=== PATIENT | female | born 1985 | race Caucasian/White ===

== ENCOUNTER → 2017-01-25 | Outpatient (CLI) | payer BC ==
[~2017-01-25] MED LIST: HYDR-3812 PO; IBUP-1773 PO
--- OUTSIDE RECORDS SUMMARY | 2017-01-25 09:44 | XMS REPORT | Continuity of Care Document ---
Author Author [facility] Organization [facility] Address Unknown Phone Unavailable Care Team Providers Care Information Developer Name Role Phone MIRACLE VENEGAS MD PCP Insurance Providers Payer Name Policy Number Subscriber Name Relationship Unknown Praveena Cuellar Self / Same As Patient Advance Directives Directive Response Recorded Date/Time Advance Directives No 06/04/16 8:30am Resuscitation Status Full Code 06/04/16 8:30am Problems No problem information available. Medications Current Home Medications Medication Dose Units Route Directions Days/Qty Instructions Start Date Ibuprofen 600 Mg 600 Mg Oral Give Every 6 Hr On Schedule 80 06/04/16 Hydrocodone/Acetaminophen 1 Each 1 Tab Oral Every 4HRS as needed for Breakthrough Pain 30 06/04/16 Social History Social History Problem Response Recorded Date/Time Alcohol Use Rarely Uses 06/04/2016 8:30am Recreational Drug Use No 06/04/2016 8:30am Recent Foreign Travel No 06/04/2016 8:30am Recent Infectious Disease Exposure No 06/04/2016 8:30am Smoking Status Never a Smoker 06/04/2016 8:30am Query Response Start Date Stop Date Smoking Status Never a Smoker Hospital Discharge Instructions Patient Instructions Physician Instructions New, Converted or Re-Newed RX: RX on Chart Additional Follow Up: Yes Orders/Referrals Dr. Flores in 7-10 days Activity: Activity as Tolerated Driving Instructions: No Driving for 1 Week NO SMOKING: NO SMOKING Nothing Inside Vagina: No Douching, No [place], No Tampons Discharge Diet: No Restrictions Symptoms to Report to : Bleeding Excessive, Pain Increased, Fever Over 101 Degrees F, Vaginal Bleeding Increase, Questions/Concerns For Any Problems or Questions: Contact Your Physician Infection Signs and Symptoms: Increased Redness, Foul Odor of Wound, Increased Drainage, Skin Itchy or Has a Rash, Increased Swelling, Temperature Above 101 F Operative Area Clean and Dry: Keep Incision Clean/Dry Stitches/Linda/Dermabond: Dermabond Bathing Instructions: Shower Plan of Care Discharge Date 06/04/16 12:52pm Instructions/Education Provided ANESTHESIA INSTRUCTIONS POSTOP Exploratory Laparoscopy (DC) Prescriptions See Medication Section Functional Status No functional status results. Allergies, Adverse Reactions, Alerts Allergen Type Severity Reaction Status Last Updated Penicillins ([id number]) Allergy Unknown HIVES Active 06/02/16 Sulfa (Sulfonamide Antibiotics) ([id number]) Allergy Unknown HIVES Active 06/02/16 Immunizations No immunization records. Vital Signs Acute Vital Signs Vital Response Date/Time Temperature (Fahrenheit) 98.9 degrees F (97.6 - 99.5) 06/04/2016 12:52pm Temperature (Calculated Celsius) 37.35339 degrees C (36.4 - 37.5) 06/04/2016 12:25pm Temperature Source Temporal 06/04/2016 12:52pm Pulse Rate (adult) 65 bpm (60 - 90) 06/04/2016 12:52pm Respiratory Rate 16 bpm (12 - 24) 06/04/2016 12:52pm O2 Sat by Pulse Oximetry 98 % (88 - 100) 06/04/2016 12:52pm Blood Pressure 123/85 mm Hg 06/04/2016 12:52pm Pain Numeric Pain Scale 1 06/04/2016 12:52pm Pain Intensity 1 06/04/2016 12:25pm Height (Feet) 5 feet 06/04/2016 8:30am Height (Inches) 4.00 inches 06/04/2016 8:30am Height (Calculated Centimeters) 162.743891 cm 06/04/2016 8:30am Weight (Pounds) 135 pounds 06/04/2016 8:30am Weight (Ounces) 0.0 oz 06/04/2016 8:30am Weight (Calculated Grams) 19094.971 gm 06/04/2016 8:30am Weight (Calculated Kilograms) 61.702217 kilograms 06/04/2016 8:30am Calculated BMI 23.2 06/04/2016 8:30am Results Laboratory Results Test Name Result Units Flags Reference Collection Date/Time Result Date/ Time Comments White Blood Count 6.1 10^3/uL 4.3-11.0 06/04/2016 8:43am 06/04/2016 9: 03am Red Blood Count 4.98 10^6/uL 4.35-5.85 06/04/2016 8:43am 06/04/2016 9: 03am Hemoglobin 14.4 G/DL 11.5-16.0 06/04/2016 8:43am 06/04/2016 9:03am Hematocrit 42 % 35-52 06/04/2016 8:43am 06/04/2016 9:03am Mean Corpuscular Volume 83 FL 80-99 06/04/2016 8:43am 06/04/2016 9: 03am Mean Corpuscular Hemoglobin 29 PG 25-34 06/04/2016 8:43am 06/04/2016 9: 03am Mean Corpuscular Hemoglobin Concent 35 G/DL 32-36 06/04/2016 8:43am 9:03am Red Cell Distribution Width 13.1 % 10.0-14.5 06/04/2016 8:43am 2015 9:03am Platelet Count 244 10^3/uL 130-400 06/04/2016 8:43am 06/04/2016 9:03am Mean Platelet Volume 10.7 FL H 7.4-10.4 06/04/2016 8:43am 06/04/2016 9: 03am Procedures Procedure Status Date Provider(s) Diagnostic laparoscopy Completed 06/04/16 DAO FLORES DO Encounters Encounter Location Arrival/Admit Date Discharge/Depart Date Attending Provider Departed [facility] 06/04/16 8:23am 12:52pm DAO FLORES DO Departed Clinic [facility] 06/02/16 5:44am 06/02/16 10: 29am DAO FOLRES DO
--- NOTE | 2017-01-25 15:29 | Diagnostic Imaging Report ---
EXAM: OB ultrasound. INDICATION: Followup for cord insertion evaluation. COMPARISON: There are no previous studies available for comparison. FINDINGS: The report from the OB ultrasound exam performed on 12/07/2016 at [facility] noted a single live fetus approximately 21 weeks 6 days gestation. On this study, the fetus is again visualized. The fetus is cephalic in presentation. heart motion was noted and a rate of 142 BPM was recorded.. There were no abnormalities identified. In particular the intracranial ventricles and the cord insertion appeared normal. The growth parameters are fairly uniform with the exception of the femur length. The growth parameters are as follows: BPD 7.65, 30 weeks 5 days. Head circumference weeks, 28.00, 30 weeks 5 days. Abdominal circumference of 26.54, 30 weeks 5 days. Femur length 5.24, 28 weeks zero days. The estimated weight is 1455 g and is in the 92nd percentile. The placenta is anterior and there is no previa. The amniotic fluid volume is within normal limits. The cervix was identified and measures 5.8 cm in length. IMPRESSION: 1. There is a single live fetus approximately 28 weeks one day gestation plus or -2 weeks by first exam. The EDC remains April 18, 2017. 2. There are no abnormalities identified. In particular, there is no abnormality of the intracranial ventricles or the cord insertion. 3. The growth parameters suggest that the fetus is at the upper most limits of normal in size. Dictated by: Dictated on workstation # [id number]
== END ==
LOC: RAD 09:40
PROVIDERS: ATTEND Obstetrics & Gynecology
DX: Z34.02 Encounter for supervision of normal first pregnancy, second trimester (principal); Z3A.20 20 weeks gestation of pregnancy
CPT/HCPCS: 76816

== ENCOUNTER 2017-04-16 16:59 | Inpatient (IN) | payer BC ==
[2017-04-16] VITALS (9 sets, daily range): BP systolic 130–181; BP diastolic 72–84
[~2017-04-16] VITALS: Ht 162.6 cm; Wt 80.9 kg
[2017-04-16] MEDS ORDERED: MINERAL OIL CONCENTRATE 99.9% 15 ML UDC TOP PRN (17:30)
[2017-04-16] MEDS ORDERED: LIDOCAINE/EPI 1%-1:200,000 (XYLOCAINE) 30 ML VIAL INJ PRN (17:30)
[2017-04-16] MEDS: D5 LR IV SOLUTION 1,000 ML IV SCH ×2 (17:50→22:45)
[2017-04-16 18:07] LABS: BASOPHILS % (AUTO) 0 % (0-10); BILIRUBIN,URINE NEGATIVE (NEGATIVE); EOSINOPHILS # (AUTO) 0.1 10^3/uL (0.0-0.3); EOSINOPHILS % (AUTO) 1 % (0-10); KETONES,URINE NEGATIVE (NEGATIVE); LEUKOCYTE ESTERASE ,URINE NEGATIVE (NEGATIVE); LYMPHOCYTES # (AUTO) 1.9 X 10^3 (1.0-4.0); LYMPHOCYTES % (AUTO) 21 % (12-44); MEAN CORPUSCULAR HEMOGLOBIN 29 PG (25-34); MEAN CORPUSCULAR HGB CONC 34 G/DL (32-36); MEAN CORPUSCULAR VOLUME 84 FL (80-99); MEAN PLATELET VOLUME 12.5 FL (7.4-10.4); MONOCYTES # (AUTO) 0.7 X 10^3 (0.0-1.0); MONOCYTES % (AUTO) 8 % (0-12); NEUTROPHILS # (AUTO) 6.5 X 10^3 (1.8-7.8); NEUTROPHILS % (AUTO) 70 % (42-75); NITRITE,URINE NEGATIVE (NEGATIVE); PH,URINE 7 (5-9); PLATELET COUNT 172 10^3/uL (130-400); PROTEIN,URINE NEGATIVE (NEGATIVE); RED BLOOD COUNT 4.59 10^6/uL (4.35-5.85); RED CELL DISTRIBUTION WIDTH 16.9 % (10.0-14.5); UROBILINOGEN,URINE NORMAL (NORMAL); WHITE BLOOD COUNT 9.2 10^3/uL (4.3-11.0)
[2017-04-16 18:13] LABS: SQUAMOUS EPITHELIAL CELL,UR RARE /HPF
[2017-04-16] MEDS ORDERED: PREN1TAB86 PO (20:25)
[2017-04-16] MEDS ORDERED: FAMO-119 PO (20:25)
[2017-04-16] MEDS ORDERED: OXYTOCIN/NORMAL SALINE 500 ML IV ONE (22:13)
[2017-04-16] MEDS: CATHETER FLUSH 10 ML SYR IV SCH (22:43)
[2017-04-16] MEDS ORDERED: fentaNYL INJECTION 100 MCG/2 ML AMP IVP PRN (22:45)
[2017-04-16] MEDS ORDERED: PROMETHAZINE INJ 25 MG/ML (PHENERGAN) AMP IVP PRN (22:45)
[2017-04-16] MEDS ORDERED: SUFENTA 0.6MCG/ML BUPIVA 0.125 100 ML ONE (23:32)
[2017-04-16] MEDS ORDERED: fentaNYL INJECTION 100 MCG/2 ML AMP ONE (23:56)
[2017-04-16] MEDS ORDERED: BUPIVACAINE 0.25% 30 ML (SENSORCAINE) VIAL ONE (23:56)
[2017-04-16] MEDS ORDERED: LACTATED RINGERS 1,000 ML IV SCH (23:58)
[2017-04-17] VITALS (51 sets, daily range): BP systolic 114–197; BP diastolic 52–114
[2017-04-17] MEDS ORDERED: ONDANSETRON 4 MG/2 ML (SDV) Z0FRAN IV PRN
[2017-04-17] MEDS ORDERED: NALOXONE 0.4 MG/ML 1 ML (NARCAN) VIAL IV PRN ×2
[2017-04-17] MEDS ORDERED: diphenhydrAMINE 50 MG/ML INJ (BENADRYL) IV PRN
[2017-04-17] MEDS ORDERED: METOCLOPRAMIDE INJ 10 MG/2 ML (REGLAN) IV PRN
[2017-04-17] MEDS ORDERED: EPIDURAL (SUFENTA 0.6MCG/ML BUPIVA 0.125%) 100 ML BAG EPI PRN
--- NOTE | 2017-04-17 01:19 | History & Physical-OB ---
OB - Chief Complaint & HPI Date Date of Admission: Date of Admission: April 16, 2017 at 5:13 pm Chief Complaint/History OB-Reason for Admission/Chief: Rupture of Membranes Hx : 2 Hx Para: 0 Expected Date of Delivery: April 18, 2017 Gestational Age in Weeks: 39 Gestational Age in Days: 6 History of Labs O +, VDRL NR HBsAg - HIV - GBS - QS wnl Had enterococcus bacteriuria at intake Other Patient presented with complaint of acute ROM and had obvious ROM on admission. Was rubina every 3-4 minutes mildly Cervix per RN exam 4 cm dilated/50% effaced Admitted for labor. She has had care per Dr. Flores. Allergies and Home Medications Allergies Coded Allergies: hydrocodone (Unverified Allergy, Mild, RASH, 06/08/16) Penicillins (Verified Allergy, Unknown, HIVES, 06/02/16) Sulfa (Sulfonamide Antibiotics) (Verified Allergy, Unknown, HIVES, 06/02/16 ) Home Medications Famotidine 20 Mg Tablet, 20 MG PO BID, (Reported) Vit W-Ca,Fe,FA(<1 mg) 1 Each Tablet, 1 EACH PO DAILY, (Reported) OB - History Hx of Present Care: Yes Ultrasounds: Normal mid trimester US Obstetrical Complications: None Medical Complications: None Information Induced Hypertension: No Maternal Gestational Diabetes: No Hemorrhage: No Obstetrical History Hx : 2 Hx Para: 0 Hx Termination: No Hx Multiple Gestation: No Hx Ectopic : No Hx Stillbirth: No Hx Complication: No Hx Induced Hypertens: No Hx Maternal Gestational Diabet: No Hx Hemorrhage: No Delivery History Hx Blood Disorders: No Patient Past Medical History 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, laparoscopy Social History/Family History HIV/AIDS: No Recent Infectious Disease Expo: No Sexually Transmitted Disease: No Alcohol Use: Denies Use Recreational Drug Use: No Immunizations Hepatitis A: No Hepatitis B: Yes Tetanus Booster (TDap): Less than 5yrs (02/22/17) Date of Influenza Vaccine: Aug 27, 2016 Rubella: immune RPR/VDRL: Negative GBS Status: Negative HBsAG: Negative OB - Admission Exam Physical Exam Vitals: Vital Signs 04/16/17 04/16/17 20:35 22:30 Temp 97.2 Pulse 60 Resp 16 B/P (MAP) 153/72 Heart: Rhythm Normal Lungs: Clear Abdomen: Gravid Cervical Dilatation: 4cm Effacement: 50% Station: -1 Membranes: Ruptured Amniotic Fluid: Clear Heart Rate: 150's Accelerations: Accelerations Present Decelerations: No Decelerations Short Term Variability: Present Longterm Variability: Average (6-25) Contractions on Admission: < 5 Minutes Apart Labs Laboratory Tests Test 04/16/17 17:50 Range/Units White Blood Count 9.2 4.3-11.0 10^3/uL Red Blood Count 4.59 4.35-5.85 10^6/uL Hemoglobin 13.2 11.5-16.0 G/DL Hematocrit 38 35-52 % Mean Corpuscular Volume 84 80-99 FL Mean Corpuscular Hemoglobin 29 25-34 PG Mean Corpuscular Hemoglobin Concent 34 32-36 G/DL Red Cell Distribution Width 16.9 H 10.0-14.5 % Platelet Count 172 130-400 10^3/uL Mean Platelet Volume 12.5 H 7.4-10.4 FL Neutrophils (%) (Auto) 70 42-75 % Lymphocytes (%) (Auto) 21 12-44 % Monocytes (%) (Auto) 8 0-12 % Eosinophils (%) (Auto) 1 0-10 % Basophils (%) (Auto) 0 0-10 % Neutrophils # (Auto) 6.5 1.8-7.8 X 10^3 Lymphocytes # (Auto) 1.9 1.0-4.0 X 10^3 Monocytes # (Auto) 0.7 0.0-1.0 X 10^3 Eosinophils # (Auto) 0.1 0.0-0.3 10^3/uL Basophils # (Auto) 0.0 0.0-0.1 10^3/uL Urine Color YELLOW Urine Clarity CLEAR Urine pH 7 5-9 Urine Specific [place] 1.005 L 1.016-1.022 Urine Protein NEGATIVE NEGATIVE Urine Glucose (UA) NEGATIVE NEGATIVE Urine Ketones NEGATIVE NEGATIVE Urine Nitrite NEGATIVE NEGATIVE Urine Bilirubin NEGATIVE NEGATIVE Urine Urobilinogen NORMAL NORMAL MG/DL Urine Leukocyte Esterase NEGATIVE NEGATIVE Urine RBC (Auto) NEGATIVE NEGATIVE Urine RBC NONE /HPF Urine WBC NONE /HPF Urine Squamous Epithelial Cells RARE /HPF Urine Crystals NONE /LPF Urine Bacteria NONE /HPF Urine Casts NONE /LPF Urine Mucus NEGATIVE /LPF Urine Culture Indicated NO OB - Assessment/Plan/Diagnosis Assessment Assessment: active labor, rupture of membranes Plan Plan: Expectant Management Other Plan Patient to be admitted. Anticipate . Desires epidural. RASHI Gutierrez DO April 17, 2017 01:19
[2017-04-17] MEDS: CATHETER FLUSH 10 ML SYR IV SCH ×2 (06:00→15:37)
[2017-04-17] MEDS ORDERED: OXYTOCIN/NORMAL SALINE 500 ML IV SCH (08:54)
[2017-04-17] MEDS ORDERED: WITCH HAZEL(TUCKS) 40 EA JAR TOP PRN (09:00)
[2017-04-17] MEDS ORDERED: BENZOCAINE/MENTHOL (DERMOPLAST) 56 ML CAN TP PRN (09:00)
[2017-04-17] MEDS ORDERED: DOCUSATE CALCIUM 240 MG (SURFAK) CAP PO SCH (09:00)
[2017-04-17] MEDS ORDERED: TETANUS,DIPTH,PERTUSS P/F (BOOSTRIX) 0.5 ML VIAL IM ONE (09:00)
[2017-04-17] MEDS ORDERED: MEASLES,MUMPS,RUBELLA 1 EA INJ SQ ONE (09:00)
--- NOTE | 2017-04-17 09:01 | OB Labor & Delivery Record ---
Vag Delivery Note Vag Delivery Note Date of Delivery: 04/17/17 Preoperative Diagnosis: Praveena Cuellar is a 32 /Para 2 / 0, Gestational Age 39 6/7 weeks with ROM Postoperative Diagnosis: Same, ROM 18 hours but no fever or other evidence of chorio so no antibiotics started; Surgeon: RASHI MCKINLEY Anesthesia: epidural Delivery Type: vaginal Findings: Viable male , apgars 7/9, weight 8#9oz Lacerations: Intact placenta with 3 vessel cord. Tight nuchal cord, delivered through, no body cord or shoulder dystocia Estimated Blood Loss: 150 ml Complications: None Condition: Stable Description of Procedure: The patient is a 32 /Para 2 / 0,Gestational Age 39 6/7 weeks with ROM ( approximately 1520 on 04/16/27). She was admitted and informed consent was obtained. Her labor course was remarkable for spontaneous labor. She was allowed to walk with heplock for several hours. Then had IV fentanyl x 1. She had epidural at approximately 6 cm. She progressed to complete dilatation and began to push. She pushed over 2 1/2 hours. She was then set up for delivery. The infant's head was delivered atraumatically in the JOJO position. The shoulders and remainder of the 's body were then delivered without difficulty. There was a tight nuchal cord that I could not reduced and thus was delivered through. Upon delivery, the head was held below the level of the perineum and the mouth and nares were bulb suctioned. The cord was doubly clamped and cut and the was handed off to the pediatric staff. An intact placenta with 3-vessel cord delivered via Dayo and there was found to be minimal bleeding.~ Vigorous fundal massage was performed and the fundus was found to be firm. IV oxytocin was given. Examination of the vagina and perineum revealed a 2nd laceration repaired in the usual fashion with 3-0 Vicryl suture (and 1% lidocaine topical anesthetic) Following the repair, sponge, instrument and needle counts were correct. Mom and baby were both in stable condition in the labor suite. Vitals - Labs Vital Signs - I&O Vital Signs Date Time Temp Pulse Resp B/P (MAP) Pulse Ox O2 Delivery O2 Flow Rate FiO2 04/17/17 06:55 82 18 134/72 04/17/17 06:40 99.6 80 16 149/69 04/17/17 06:30 88 16 142/78 04/17/17 06:15 96 16 197/114 04/17/17 05:40 99.0 99 16 139/75 100 04/17/17 05:25 71 16 132/67 96 04/17/17 05:10 75 16 124/72 98 04/17/17 04:55 84 16 129/64 96 04/17/17 04:40 74 16 137/63 98 04/17/17 04:25 84 16 140/65 99 04/17/17 04:10 84 16 125/70 98 04/17/17 03:50 99.2 04/17/17 03:40 71 18 132/62 100 04/17/17 03:25 78 18 122/64 100 04/17/17 03:10 69 18 134/66 100 15.00 04/17/17 02:55 69 18 131/67 100 15.00 04/17/17 02:40 77 18 116/60 100 15.00 04/17/17 02:30 71 18 128/61 100 15.00 04/17/17 02:10 62 18 118/63 100 15.00 04/17/17 01:55 59 18 127/68 100 15.00 04/17/17 01:40 63 18 122/63 100 15.00 04/17/17 01:25 75 18 116/57 100 15.00 04/17/17 01:10 71 18 114/52 99 04/17/17 00:55 79 18 131/82 100 04/17/17 00:50 66 18 129/68 99 04/17/17 00:44 75 18 129/73 98 04/17/17 00:39 79 18 137/64 99 04/17/17 00:34 79 20 138/63 99 04/17/17 00:26 79 20 152/95 97 04/17/17 00:23 74 20 148/73 98 04/17/17 00:20 71 20 147/71 98 04/17/17 00:17 69 20 140/60 100 04/17/17 00:14 70 20 163/74 100 04/17/17 00:11 64 20 161/73 100 04/17/17 00:10 70 20 164/75 100 04/17/17 00:07 68 20 162/73 100 04/17/17 00:02 69 22 162/72 99 04/16/17 23:50 96.1 57 20 181/77 04/16/17 22:30 60 16 153/72 04/16/17 20:35 97.2 56 18 130/78 04/16/17 19:25 67 18 150/84 04/16/17 19:00 97.9 62 18 149/82 04/16/17 18:30 60 18 148/75 04/16/17 18:00 68 18 140/81 04/16/17 17:30 82 18 132/76 04/16/17 16:55 97.6 86 18 141/81 I & O 04/17/17 07:00 Intake Total 3000 ml Balance 3000 ml Labs Laboratory Tests 04/16/17 17:50: White Blood Count 9.2, Red Blood Count 4.59, Hemoglobin 13.2, Hematocrit 38, Mean Corpuscular Volume 84, Mean Corpuscular Hemoglobin 29, Mean Corpuscular Hemoglobin Concent 34, Red Cell Distribution Width 16.9H, Platelet Count 172, Mean Platelet Volume 12.5H, Neutrophils (%) (Auto) 70, Lymphocytes (%) (Auto) 21 , Monocytes (%) (Auto) 8, Eosinophils (%) (Auto) 1, Basophils (%) (Auto) 0, Neutrophils # (Auto) 6.5, Lymphocytes # (Auto) 1.9, Monocytes # (Auto) 0.7, Eosinophils # (Auto) 0.1, Basophils # (Auto) 0.0, Urine Color YELLOW, Urine Clarity CLEAR, Urine pH 7, Urine Specific [place] 1.005L, Urine Protein NEGATIVE , Urine Glucose (UA) NEGATIVE, Urine Ketones NEGATIVE, Urine Nitrite NEGATIVE, Urine Bilirubin NEGATIVE, Urine Urobilinogen NORMAL, Urine Leukocyte Esterase NEGATIVE, Urine RBC (Auto) NEGATIVE, Urine RBC NONE, Urine WBC NONE, Urine Squamous Epithelial Cells RARE, Urine Crystals NONE, Urine Bacteria NONE, Urine Casts NONE, Urine Mucus NEGATIVE, Urine Culture Indicated NO RASHI MCKINLEY DO April 17, 2017 09:01
[2017-04-17] MEDS: IBUPROFEN 600 MG (MOTRIN) TAB PO SCH ×3 (09:29→21:32)
[2017-04-17] MEDS: FERROUS SULF 325 MG (IRON) TAB PO SCH (12:52)
[2017-04-17] MEDS: DOCUSATE SODIUM 100 MG (COLACE) CAP PO SCH ×2 (12:52→21:32)
[2017-04-17] MEDS ORDERED: CATHETER FLUSH 10 ML SYR IV SCH (14:00)
[2017-04-18 00:02] VITALS: BP 138/73
[2017-04-18] MEDS: IBUPROFEN 600 MG (MOTRIN) TAB PO SCH ×2 (03:56→10:08)
[2017-04-18 03:57] VITALS: BP 141/67
[2017-04-18 06:34] LABS: BASOPHILS % (AUTO) 0 % (0-10); EOSINOPHILS # (AUTO) 0.3 10^3/uL (0.0-0.3); EOSINOPHILS % (AUTO) 2 % (0-10); LYMPHOCYTES # (AUTO) 2.7 X 10^3 (1.0-4.0); LYMPHOCYTES % (AUTO) 19 % (12-44); MEAN CORPUSCULAR HEMOGLOBIN 29 PG (25-34); MEAN CORPUSCULAR HGB CONC 33 G/DL (32-36); MEAN CORPUSCULAR VOLUME 86 FL (80-99); MONOCYTES % (AUTO) 7 % (0-12); NEUTROPHILS # (AUTO) 10.4 X 10^3 (1.8-7.8); NEUTROPHILS % (AUTO) 73 % (42-75); PLATELET COUNT 141 10^3/uL (130-400); RED BLOOD COUNT 3.96 10^6/uL (4.35-5.85); RED CELL DISTRIBUTION WIDTH 17.4 % (10.0-14.5); WHITE BLOOD COUNT 14.4 10^3/uL (4.3-11.0)
[2017-04-18] MEDS ORDERED: PRENATAL VITAMIN 1 EA TAB PO SCH (07:00)
[2017-04-18] MEDS: DOCUSATE SODIUM 100 MG (COLACE) CAP PO SCH (08:32)
[2017-04-18] MEDS: FERROUS SULF 325 MG (IRON) TAB PO SCH (08:32)
--- NOTE | 2017-04-18 08:39 | Anesthesia-Regional Post-Op ---
Regional Patient Condition Mental Status: Alert, Oriented x3 Circulation: Same as Pre-Op Headache: Absent Sensation: Full Recovery Motor Block: Absent Post Op Complications Complications None Follow Up Care/Instructions Patient Instructions None needed. Anesthesia/Patient Condition Patient is doing well, no complaints, stable vital signs, no apparent adverse anesthesia problems. No complications reported per nursing. D/C home per [facility] Criteria: No KHADRA KOLB CRNA April 18, 2017 08:39
[2017-04-18 10:09] VITALS: BP 118/60
--- NOTE | 2017-04-18 11:07 | Postpartum Progress Note ---
Note Note Day # 1 s/p Subjective: Patient is without complaints. Ambulating, voiding. Tolerating a regular diet without nausea or vomiting. Normal lochia. Pain is well controlled with oral pain medications. breast feeding. Objective: Laboratory Tests Test 04/18/17 05:23 Range/Units White Blood Count 14.4 H 4.3-11.0 10^3/uL Red Blood Count 3.96 L 4.35-5.85 10^6/uL Hemoglobin 11.3 L 11.5-16.0 G/DL Hematocrit 34 L 35-52 % Mean Corpuscular Volume 86 80-99 FL Mean Corpuscular Hemoglobin 29 25-34 PG Mean Corpuscular Hemoglobin Concent 33 32-36 G/DL Red Cell Distribution Width 17.4 H 10.0-14.5 % Platelet Count 141 130-400 10^3/uL Mean Platelet Volume 12.0 H 7.4-10.4 FL Neutrophils (%) (Auto) 73 42-75 % Lymphocytes (%) (Auto) 19 12-44 % Monocytes (%) (Auto) 7 0-12 % Eosinophils (%) (Auto) 2 0-10 % Basophils (%) (Auto) 0 0-10 % Neutrophils # (Auto) 10.4 H 1.8-7.8 X 10^3 Lymphocytes # (Auto) 2.7 1.0-4.0 X 10^3 Monocytes # (Auto) 1.0 0.0-1.0 X 10^3 Eosinophils # (Auto) 0.3 0.0-0.3 10^3/uL Basophils # (Auto) 0.0 0.0-0.1 10^3/uL Vital Signs 04/17/17 04/18/17 03:10 10:09 Temp 98.1 Pulse 70 Resp 18 B/P (MAP) 118/60 Pulse Ox 98 O2 Flow Rate 15.00 Physical Exam: General - Alert and oriented, no apparent distress Abdomen - Soft, appropriately tender to palpation, non-distended, fundus firm at umbilicus Extremities - no edema, negative Romelia's bilaterally Assessment: 1. post- day # 1, status post vaginal delivery. Recovering well, hemodynamically stable Plan: Routine care. Encourage breast feeding. Encourage ambulation. Ferrous sulfate supplementation. Plan for discharge today Vitals - Labs Vital Signs - I&O Vital Signs Date Time Temp Pulse Resp B/P (MAP) Pulse Ox O2 Delivery O2 Flow Rate FiO2 04/18/17 10:09 98.1 70 18 118/60 98 04/18/17 03:57 97.3 76 16 141/67 04/18/17 00:02 97.8 77 16 138/73 97 04/17/17 20:08 96.9 67 16 141/77 99 04/17/17 15:33 98.2 68 18 120/58 04/17/17 11:22 97.9 90 18 124/68 97 I & O 04/18/17 07:00 Intake Total 600 ml Balance 600 ml Labs Laboratory Tests 04/18/17 05:23: White Blood Count 14.4H, Red Blood Count 3.96L, Hemoglobin 11.3L, Hematocrit 34L , Mean Corpuscular Volume 86, Mean Corpuscular Hemoglobin 29, Mean Corpuscular Hemoglobin Concent 33, Red Cell Distribution Width 17.4H, Platelet Count 141, Mean Platelet Volume 12.0H, Neutrophils (%) (Auto) 73, Lymphocytes (%) (Auto) 19 , Monocytes (%) (Auto) 7, Eosinophils (%) (Auto) 2, Basophils (%) (Auto) 0, Neutrophils # (Auto) 10.4H, Lymphocytes # (Auto) 2.7, Monocytes # (Auto) 1.0, Eosinophils # (Auto) 0.3, Basophils # (Auto) 0.0 RASHI MCKINLEY DO April 18, 2017 11:07
[2017-04-18] MEDS ORDERED: IBUP-1773 PO (11:19)
--- NOTE | 2017-04-18 11:21 | Discharge Inst-Women's Service ---
Discharge Inst-Women's Serv Depart Medication/Instructions New, Converted or Re-Newed RX: RX on Chart Final Diagnosis Spontaneous vaginal delivery epidural Consults/Follow Up Additional Follow Up: Yes ([address] Mckinley) Activity Activity: Activity as Tolerated Driving Instructions: You May Drive NO SMOKING: NO SMOKING Nothing Inside Vagina: No Douching, No [place], No Tampons Diet Discharge Diet: No Restrictions Symptoms to Report to : Swelling Increased, Eyesight Changes, Pain Increased , Fever Over 101 Degrees F, Vaginal Bleeding Increase, Cramps in Feet or Legs, Vaginal Discharge Foul For Any Problems or Questions: Contact Your Physician RASHI MCKINLEY DO April 18, 2017 11:21
== END 2017-04-18 13:00 | disposition home or self-care (01) | DRG 775 ==
LOC: WSo 16:59 → LDRP 17:13
PROVIDERS: ADMIT Obstetrics & Gynecology; ATTEND Obstetrics & Gynecology
PROC: 0KQM0ZZ Repair Perineum Muscle, Open Approach (ICD-10-PCS; principal; 2017-04-17)
PROC: 10E0XZZ Delivery of Products of Conception, External Approach (ICD-10-PCS; 2017-04-17)
DX: O70.1 Second degree perineal laceration during delivery (principal); O69.81X0 Labor and delivery complicated by cord around neck, without compression, not applicable or unspecified; Z3A.39 39 weeks gestation of pregnancy; Z37.0 Single live birth
CPT/HCPCS: 36415; 81000; 85025; 86850; 86900; 86901; 99212

== ENCOUNTER → 2018-07-04 | Outpatient (CLI) | payer BC ==
[~2018-07-04] MED LIST changes: +ACHD5005 PO; +FAMO-119 PO; -HYDR-3812 PO; +PREN1TAB86 PO
--- NOTE | 2018-07-04 11:55 | Diagnostic Imaging Report ---
INDICATION: survey. TECHNIQUE: Multiple real-time grayscale images were obtained over the gravid uterus. COMPARISON: None. FINDINGS: There is a single live fetus in a cephalic presentation. heart rate was recorded at 161 beats per minute. Placenta is anterior. Amniotic fluid volume is normal. Cervical length is 6.1 cm. survey demonstrates kidneys, bladder, and stomach to be unremarkable. brain is unremarkable. There is a four-chamber heart. There is a three-vessel cord with normal insertion. The spine is unremarkable. Biometrical measurements are as follows: Biparietal 4.79 cm, age 20 weeks 4 days. Head circumference 18.02 cm, age 20 weeks 4 days. Abdominal circumference 16.41 cm, age 21 weeks 4 days. Femur length 4.03 cm, age 23 weeks 1 days. Sonographic estimate age: 21 weeks 4 days. Sonographic estimated date of delivery: 11/10/2018. Estimated Weight: 462 gm (+/- 68 gm). LMP percentile: 98%. heart rate: 161 beats per minute. number: 1 of 1. IMPRESSION: Single live IUP of approximately 21 weeks 4 days gestational age. The estimated date of confinement sonographically is 11/10/2018. Dictated by: Dictated on workstation # [id number]
== END ==
LOC: RAD 09:53
PROVIDERS: ATTEND Obstetrics & Gynecology
DX: Z36.89 Encounter for other specified antenatal screening (principal); Z3A.21 21 weeks gestation of pregnancy
CPT/HCPCS: 76805

== ENCOUNTER 2018-11-18 11:45 | Inpatient (IN) | payer BC ==
[~2018-11-18] VITALS: Ht 162.6 cm; Wt 79.4 kg
[2018-11-18] VITALS (42 sets, daily range): BP systolic 98–137; BP diastolic 53–88
--- NOTE | 2018-11-18 11:40 | NUR ---
GUSTAVO SALDAÑA presented to unit via ambulation, accompanied by S.O., with c/o LABOR. GUSTAVO SALDAÑA weighed, gowned, voided, and to bed. EFHM and TOCO applied, VS taken. GUSTAVO SALDAÑA oriented to bed controls, call light, TV, heat, and A/C controls.
--- NOTE | 2018-11-18 11:59 | NUR ---
Dr. Flores called and notified of pt arrival, C/O ctx, ctx pattern, SVE, FHR, other assessment findings. Orders rec'd for admission. May just insert SL with no fluids running at this time.
[2018-11-18] MEDS ORDERED: MINERAL OIL CONCENTRATE 99.9% 15 ML UDC TOP PRN (12:30)
[2018-11-18 12:52] LABS: BASOPHILS % (AUTO) 0 % (0-10); EOSINOPHILS # (AUTO) 0.1 10^3/uL (0.0-0.3); EOSINOPHILS % (AUTO) 1 % (0-10); HEMATOCRIT 38 % (35-52); HEMOGLOBIN 12.5 G/DL (11.5-16.0); LYMPHOCYTES # (AUTO) 1.4 X 10^3 (1.0-4.0); LYMPHOCYTES % (AUTO) 11 % (12-44); MEAN CORPUSCULAR HEMOGLOBIN 27 PG (25-34); MEAN CORPUSCULAR HGB CONC 33 G/DL (32-36); MEAN CORPUSCULAR VOLUME 82 FL (80-99); MEAN PLATELET VOLUME 11.2 FL (7.4-10.4); MONOCYTES # (AUTO) 0.6 X 10^3 (0.0-1.0); MONOCYTES % (AUTO) 5 % (0-12); NEUTROPHILS % (AUTO) 83 % (42-75); PLATELET COUNT 219 10^3/uL (130-400); RED BLOOD COUNT 4.64 10^6/uL (4.35-5.85); RED CELL DISTRIBUTION WIDTH 15.3 % (10.0-14.5); WHITE BLOOD COUNT 12.1 10^3/uL (4.3-11.0)
[2018-11-18] MEDS ORDERED: CATHETER FLUSH 10 ML SYR IV SCH (14:00)
[2018-11-18] MEDS ORDERED: LACTATED RINGERS 1,000 ML IV ONE (14:37)
[2018-11-18] MEDS ORDERED: SUFENTA 0.6MCG/ML BUPIVA 0.125 100 ML ONE (14:53)
--- NOTE | 2018-11-18 15:03 | NUR ---
1503 SATHISH AYALA here for epidural placement. Procedure explained, consent reviewed and signed by anesthesia. Questions answered to patient's satisfaction. Time out taken to verify correct patient/procedure. 1509 Patient up to side of bed, assisted into sitting position. 1510 Betadine prep done x3 and sterile drape applied. 1512 Local done, see anesthesia record. 1514 Test dose given, see anesthesia record for drug and dosage. 1516 Test dose #2 given, see anesthesia record for drug and dosage. Epidural catheter secured in place. Epidural placement complete. 1520 Assisted back into bed, monitors adjusted. Epidural dosed, see anesthesia record. Epidural of Sufenta/Bupvicaine @ 12cc/hr stated per pump. Patient tolerated procedure well.
[2018-11-18] MEDS ORDERED: D5 LR IV SOLUTION 1,000 ML IV ONE (15:20)
[2018-11-18] MEDS ORDERED: OXYTOCIN/NORMAL SALINE 500 ML IV ONE (15:21)
[2018-11-18] MEDS ORDERED: LACTATED RINGERS 1,000 ML IV SCH (15:28)
[2018-11-18] MEDS ORDERED: EPIDURAL (SUFENTA 0.6MCG/ML BUPIVA 0.125%) 100 ML BAG EPI SCH (15:30)
[2018-11-18] MEDS ORDERED: NALOXONE 0.4 MG/ML 1 ML (NARCAN) VIAL IV PRN ×2 (15:30)
[2018-11-18] MEDS ORDERED: METOCLOPRAMIDE INJ 10 MG/2 ML (REGLAN) IV PRN (15:30)
[2018-11-18] MEDS ORDERED: diphenhydrAMINE 50 MG/ML INJ (BENADRYL) IV PRN (15:30)
[2018-11-18] MEDS ORDERED: ONDANSETRON 4 MG/2 ML (SDV) Z0FRAN IV PRN (15:30)
--- NOTE | 2018-11-18 19:00 | NUR ---
REFER TO LABOR FLOW SHEET.
--- NOTE | 2018-11-18 19:15 | NUR ---
REPORT RECEIVED AND CARES RESUMED BY THIS NURSE.
--- NOTE | 2018-11-18 19:15 | NUR ---
REPORT TO Zaynab STILES RN.
[2018-11-18] MEDS ORDERED: OXYTOCIN/NORMAL SALINE 500 ML IV SCH (23:07)
[2018-11-18] MEDS ORDERED: HYDROcodone/APAP 5 MG/325 MG (LORTAB) TAB PO PRN (23:15)
[2018-11-18] MEDS ORDERED: TETANUS,DIPTH,PERTUSS P/F (BOOSTRIX) 0.5 ML VIAL IM ONE (23:15)
[2018-11-18] MEDS ORDERED: MEASLES,MUMPS,RUBELLA 1 EA INJ SQ ONE (23:15)
[2018-11-18] MEDS ORDERED: WITCH HAZEL(TUCKS) 40 EA JAR TOP PRN (23:15)
[2018-11-18] MEDS ORDERED: BENZOCAINE/MENTHOL (DERMOPLAST) 56 ML CAN TP PRN (23:15)
[2018-11-18] MEDS ORDERED: DIBUCAINE (NUPERCAINAL) 1% OINT 30 GM TOP PRN (23:15)
--- NOTE | 2018-11-18 23:16 | History & Physical-OB ---
OB - Chief Complaint & HPI Date/Time Date of Admission: Date of Admission: Nov 18, 2018 at 12:20 Date seen by a Provider: Nov 18, 2018 Time Seen by a Provider: 17:00 Chief Complaint/History OB-Reason for Admission/Chief: Onset of Labor Hx : 3 Hx Para: 1 Expected Date of Delivery: Nov 18, 2018 Gestational Age in Weeks: 40 Gestational Age in Days: 0 Other reason for admission: Active labor Admission Nurse Assessment Rev: Yes History of Labs O pos Antibody neg RI RPR NR HBsAg NR HIV NR GC neg GBS neg Allergies and Home Medications Allergies Coded Allergies: hydrocodone (Unverified Allergy, Mild, RASH, 06/08/16) Penicillins (Verified Allergy, Unknown, HIVES, 06/02/16) Sulfa (Sulfonamide Antibiotics) (Verified Allergy, Unknown, HIVES, 06/02/16 ) Home Medications Vit W-Ca,Fe,FA(<1 mg) 1 Each Tablet, 1 EACH PO DAILY, (Reported) Patient Home Medication List Home Medication List Reviewed: Yes OB - History Hx of Present Care: Yes Ultrasounds: Normal mid trimester US Obstetrical Complications: None Medical Complications: None Obstetrical History Hx Termination: No Hx Multiple Gestation: No Hx Stillbirth: No Hx Complication: No Hx Induced Hypertens: No Hx Maternal Gestational Diabet: No Delivery History Hx Blood Disorders: No Adverse Rxn to Tranfusion: No Patient Past Medical History 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, laparoscopy Social History/Family History HIV/AIDS: No Recent Infectious Disease Expo: No Sexually Transmitted Disease: No Alcohol Use: Denies Use Recreational Drug Use: No Immunizations Hepatitis A: No Hepatitis B: Yes Tetanus Booster (TDap): Less than 5yrs Date of Influenza Vaccine: Aug 27, 2016 OB - Admission Exam Physical Exam Vitals: Vital Signs 11/18/18 19:00 Temp 99.2 Pulse 90 Resp 18 B/P (MAP) 125/88 (100) Pulse Ox 100 O2 Delivery Room Air HEENT: NCAT Heart: Rhythm Normal Lungs: Clear Abdomen: Gravid Extremities: Normal Reflexes: Normal Cervical Dilatation: 5cm Effacement: 75% Station: -1 Membranes: Intact Heart Rate: 130's Accelerations: Accelerations Present Decelerations: No Decelerations Short Term Variability: Present Assistant Store Manager Operations Variability: Average (6-25) Contractions on Admission: < 5 Minutes Apart Intensity: Firm Labs Laboratory Tests Test 11/18/18 12:30 Range/Units White Blood Count 12.1 H 4.3-11.0 10^3/uL Red Blood Count 4.64 4.35-5.85 10^6/uL Hemoglobin 12.5 11.5-16.0 G/DL Hematocrit 38 35-52 % Mean Corpuscular Volume 82 80-99 FL Mean Corpuscular Hemoglobin 27 25-34 PG Mean Corpuscular Hemoglobin Concent 33 32-36 G/DL Red Cell Distribution Width 15.3 H 10.0-14.5 % Platelet Count 219 130-400 10^3/uL Mean Platelet Volume 11.2 H 7.4-10.4 FL Neutrophils (%) (Auto) 83 H 42-75 % Lymphocytes (%) (Auto) 11 L 12-44 % Monocytes (%) (Auto) 5 0-12 % Eosinophils (%) (Auto) 1 0-10 % Basophils (%) (Auto) 0 0-10 % Neutrophils # (Auto) 10.0 H 1.8-7.8 X 10^3 Lymphocytes # (Auto) 1.4 1.0-4.0 X 10^3 Monocytes # (Auto) 0.6 0.0-1.0 X 10^3 Eosinophils # (Auto) 0.1 0.0-0.3 10^3/uL Basophils # (Auto) 0.0 0.0-0.1 10^3/uL OB - Assessment/Plan/Diagnosis Assessment Assessment: active labor Admission Dx 33 yo @ 40 weeks Active labor GBS neg Admission Status: Inpatient Order (span 2 midnights) Reason for Inpatient Admission: Active labor at term Plan Plan: Expectant Management DAO GUTIERREZ DO Nov 18, 2018 23:16
--- NOTE | 2018-11-18 23:24 | OB Labor & Delivery Record ---
L&D History Date of Service Date of Service: Nov 18, 2018 History Expected Date of Delivery: Nov 18, 2018 Gestational Age in Weeks: 40 Hx : 3 Hx Para: 1 Complications Events: Routine care Operative Indications (Cesarea: N/A-Vaginal Delivery Intrapartal Events: None L&D Stage1 Stage One Onset of Labor - Date: Nov 18, 2018 Monitors and Tracing Monitor Mode: External Heart Rate: 140 Station: -1 Halfway Variability: Average (6-10) Presentation: Vertex Vital Signs VS - Last 72 Hours, by Label 11/18/18 11/18/18 11/18/18 11/18/18 11:49 15:00 15:08 15:11 Temp 97.9 Pulse 91 73 76 Resp 18 18 18 B/P (MAP) 129/73 (91) 131/73 (92) 130/79 (96) Pulse Ox 100 O2 Delivery Room Air Room Air Room Air 11/18/18 11/18/18 11/18/18 11/18/18 15:13 15:17 15:20 15:23 Pulse 71 67 87 85 Resp 18 18 18 18 B/P (MAP) 123/70 (87) 117/62 (80) 127/68 (87) 118/67 (84) Pulse Ox 100 100 O2 Delivery Room Air Room Air Room Air Room Air 11/18/18 11/18/18 11/18/18 11/18/18 15:25 15:29 15:32 15:35 Pulse 80 80 96 84 Resp 18 18 18 18 B/P (MAP) 122/67 (85) 118/65 (82) 111/62 (78) 117/68 (84) Pulse Ox 100 100 100 O2 Delivery Room Air Room Air Room Air Room Air 11/18/18 11/18/18 11/18/18 11/18/18 15:38 15:41 15:44 16:00 Pulse 83 78 84 92 Resp 18 18 18 18 B/P (MAP) 122/67 (85) 110/62 (78) 110/63 (79) 98/56 (70) Pulse Ox 100 100 100 O2 Delivery Room Air Room Air Room Air Room Air 11/18/18 11/18/18 11/18/18 11/18/18 16:15 16:30 16:45 17:00 Pulse 68 88 84 89 Resp 18 18 18 18 B/P (MAP) 113/68 (83) 109/60 (76) 118/65 (82) 110/74 (86) Pulse Ox 100 100 100 100 O2 Delivery Room Air Room Air Room Air Room Air 11/18/18 11/18/18 11/18/18 11/18/18 17:15 17:30 17:45 18:00 Temp 98.4 Pulse 80 85 78 85 Resp 18 18 18 B/P (MAP) 117/61 (79) 114/55 (74) Pulse Ox 98 100 100 100 O2 Delivery Room Air Room Air Room Air Room Air 11/18/18 11/18/18 11/18/18 11/18/18 18:15 18:30 18:45 19:00 Temp 99.2 Pulse 97 83 79 90 Resp 18 18 18 18 B/P (MAP) 114/68 (83) 124/78 (93) 125/88 (100) Pulse Ox 100 99 100 100 O2 Delivery Room Air Room Air Room Air Room Air Rupture of Membranes Spontaneous Ruture of Membrane: No Amniotic Membrane Rupture Time: 1840 Amniotic Membrane Fluid Desc.: Clear Vaginal Bleeding Description: Normal Show Induction/Anesthesia Epidural Cath Placement - Time: 1513 Progress/Notes Patient presented in active labor received an epidural and made change to 8-9 cm , had a protracted labor phase of about 3 hr until progressing to complete. She labored down for one hour. L&D Stage2 Stage Two Stage II Date: Nov 18, 2018 Monitors and Tracing Monitor Mode: External Heart Rate: 140 Monitor Accelerations: Uniform Monitor Decelerations: Variable Foam Charger Variability: Average (6-10) Short Term Variability: Present Position: Right Occiput Anterior Presentation: Vertex Cord Descript/Complications Cord Vessel Description: 3 Vessels Delivery Type Infant Delivery Method: Spontaneous Vaginal Anterior Shoulder: Right Episiotomy/Perineal Laceration Laceraction(s)/Extensions: Yes Episiotomy Description: Perineal Extension/lac, 1st degree Degree (describe repair) 1st degree perineal lac repaired using 3-0 rapide in usual fashion Condition of Delivery 1 minute Comment: 8 5 minute Comment: 9 Notes Live male infant weight 8lbs 5 oz, APGARs 8/9 Condition of Condition of Infant: Living Exam: No Observed Abnormalities Resuscitation Resuscitation: N/A - Spontaneous Resp L&D Stage3 Stage Three Stage III Date: Nov 18, 2018 Pictocin Pitocin Administration Comment: 30 mu wide open at delivery of placenta Placenta Delivery Placenta Delivery: Spontaneous Delivery Summary Summary Estimated blood loss (mL): 250 Attending at delivery: Dao Gutierrez DO Condition of Delivery Examined: Cervix Examined, Uterus Explored Post Hemorrhage: No Condition of Mother stable Condition of (s) stable DAO GUTIERREZ DO Nov 18, 2018 23:24
--- NOTE | 2018-11-18 23:25 | Discharge Inst-Women's Service ---
Discharge Inst-Women's Serv Depart Medication/Instructions New, Converted or Re-Newed RX: RX on Chart Final Diagnosis PPD 2 NVD Consults/Follow Up Additional Follow Up: Yes Activity Activity: Activity as Tolerated Driving Instructions: No Driving for 1 Week NO SMOKING: NO SMOKING Nothing Inside Vagina: No Douching, No [place], No Tampons Diet Discharge Diet: No Restrictions Symptoms to Report to : Bleeding Excessive, Pain Increased, Fever Over 101 Degrees F, Vaginal Bleeding Increase, Questions/Concerns For Any Problems or Questions: Contact Your Physician DAO GUTIERREZ DO Nov 18, 2018 23:25
[2018-11-18] MEDS ORDERED: IBUP-844 PO (23:26)
[2018-11-18] MEDS ORDERED: FERR325T18 PO (23:26)
[2018-11-18] MEDS ORDERED: DOCU100C37 PO (23:26)
[2018-11-19] VITALS (8 sets, daily range): BP systolic 119–136; BP diastolic 56–72
[2018-11-19] MEDS: IBUPROFEN 600 MG (MOTRIN) TAB PO SCH ×5 (06:00→22:13)
[2018-11-19] MEDS ORDERED: CATHETER FLUSH 10 ML SYR IV SCH (06:00)
[2018-11-19 06:19] LABS: BASOPHILS % (AUTO) 0 % (0-10); EOSINOPHILS % (AUTO) 0 % (0-10); HEMATOCRIT 32 % (35-52); HEMOGLOBIN 10.8 G/DL (11.5-16.0); LYMPHOCYTES # (AUTO) 1.5 X 10^3 (1.0-4.0); LYMPHOCYTES % (AUTO) 10 % (12-44); MEAN CORPUSCULAR HEMOGLOBIN 28 PG (25-34); MEAN CORPUSCULAR HGB CONC 34 G/DL (32-36); MEAN CORPUSCULAR VOLUME 82 FL (80-99); MEAN PLATELET VOLUME 11.4 FL (7.4-10.4); MONOCYTES # (AUTO) 1.2 X 10^3 (0.0-1.0); MONOCYTES % (AUTO) 8 % (0-12); NEUTROPHILS # (AUTO) 12.2 X 10^3 (1.8-7.8); NEUTROPHILS % (AUTO) 82 % (42-75); PLATELET COUNT 174 10^3/uL (130-400); RED CELL DISTRIBUTION WIDTH 15.2 % (10.0-14.5); WHITE BLOOD COUNT 14.9 10^3/uL (4.3-11.0)
--- NOTE | 2018-11-19 09:42 | Postpartum Progress Note ---
Note Note Day # 1 Subjective: Patient is without complaints. Ambulating, voiding. Tolerating a regular diet without nausea or vomiting. Normal lochia. Pain is well controlled with oral pain medications. Objective: Vital Sign - Last 24 Hours 11/18/18 11/18/18 11/18/18 11/18/18 11:49 15:00 15:08 15:11 Temp 97.9 Pulse 91 73 76 Resp 18 18 18 B/P (MAP) 129/73 (91) 131/73 (92) 130/79 (96) Pulse Ox 100 O2 Delivery Room Air Room Air Room Air 11/18/18 11/18/18 11/18/18 11/18/18 15:13 15:17 15:20 15:23 Pulse 71 67 87 85 Resp 18 18 18 18 B/P (MAP) 123/70 (87) 117/62 (80) 127/68 (87) 118/67 (84) Pulse Ox 100 100 O2 Delivery Room Air Room Air Room Air Room Air 11/18/18 11/18/18 11/18/18 11/18/18 15:25 15:29 15:32 15:35 Pulse 80 80 96 84 Resp 18 18 18 18 B/P (MAP) 122/67 (85) 118/65 (82) 111/62 (78) 117/68 (84) Pulse Ox 100 100 100 O2 Delivery Room Air Room Air Room Air Room Air 11/18/18 11/18/18 11/18/18 11/18/18 15:38 15:41 15:44 16:00 Pulse 83 78 84 92 Resp 18 18 18 18 B/P (MAP) 122/67 (85) 110/62 (78) 110/63 (79) 98/56 (70) Pulse Ox 100 100 100 O2 Delivery Room Air Room Air Room Air Room Air 11/18/18 11/18/18 11/18/18 11/18/18 16:15 16:30 16:45 17:00 Pulse 68 88 84 89 Resp 18 18 18 18 B/P (MAP) 113/68 (83) 109/60 (76) 118/65 (82) 110/74 (86) Pulse Ox 100 100 100 100 O2 Delivery Room Air Room Air Room Air Room Air 11/18/18 11/18/18 11/18/18 11/18/18 17:15 17:30 17:45 18:00 Temp 98.4 Pulse 80 85 78 85 Resp 18 18 18 18 B/P (MAP) 117/61 (79) 114/55 (74) Pulse Ox 98 100 100 100 O2 Delivery Room Air Room Air Room Air Room Air 11/18/18 11/18/18 11/18/18 11/18/18 18:15 18:30 18:45 19:00 Temp 99.2 Pulse 97 83 79 90 Resp 18 18 18 18 B/P (MAP) 114/68 (83) 124/78 (93) 125/88 (100) Pulse Ox 100 99 100 100 O2 Delivery Room Air Room Air Room Air Room Air 11/18/18 11/18/18 11/18/18 11/18/18 19:15 19:30 19:45 20:00 Pulse 87 80 78 88 Resp 18 18 18 18 B/P (MAP) 111/61 (78) 111/65 (80) 121/66 (84) 111/66 (81) Pulse Ox 100 98 100 98 O2 Delivery Room Air Room Air Room Air Room Air 11/18/18 11/18/18 11/18/18 11/18/18 20:15 20:30 20:45 20:50 Temp 99.6 Pulse 66 72 81 Resp 18 18 18 B/P (MAP) 111/76 (88) 122/71 (88) 121/78 (92) Pulse Ox 100 100 100 O2 Delivery Room Air Room Air Room Air Non Rebreather O2 Flow Rate 10.00 11/18/18 11/18/18 11/18/18 11/18/18 21:00 21:15 21:30 21:45 Pulse 81 72 78 83 Resp 18 18 18 18 B/P (MAP) 117/70 (86) 129/77 (94) 135/74 (94) 128/73 (91) Pulse Ox 100 100 100 100 O2 Delivery Non Rebreather Non Rebreather Non Rebreather Non Rebreather O2 Flow Rate 10.00 10.00 10.00 10.00 11/18/18 11/18/18 11/18/18 11/18/18 22:00 22:15 22:45 23:00 Pulse 83 78 95 94 Resp 18 18 18 18 B/P (MAP) 137/75 (95) 134/76 (95) 131/82 (98) 133/62 (85) Pulse Ox 100 100 O2 Delivery Non Rebreather Room Air Room Air Room Air O2 Flow Rate 10.00 11/18/18 11/18/18 11/18/18 11/19/18 23:15 23:30 23:45 00:00 Pulse 86 85 80 88 Resp 18 16 16 16 B/P (MAP) 121/57 (78) 127/53 (77) 128/71 (90) 136/62 (86) O2 Delivery Room Air Room Air Room Air Room Air 11/19/18 11/19/18 11/19/18 00:15 01:30 03:00 Temp 99.0 98.9 Pulse 93 85 92 Resp 16 16 16 B/P (MAP) 129/62 (84) 132/72 (92) 136/68 (90) O2 Delivery Room Air Room Air Room Air Intake and Output 11/18/18 11/18/18 11/19/18 15:00 23:00 07:00 Intake Total 1000 ml 1500 ml Balance 1000 ml 1500 ml Physical Exam: General - Alert and oriented, no apparent distress Abdomen - Soft, appropriately tender to palpation, non-distended, fundus firm at umbilicus Extremities - no edema, negative Romelia's bilaterally Assessment: PPD 1 NVD Acute blood loss anemia Plan: Routine care. Encourage breast feeding. Encourage ambulation. Ferrous sulfate supplementation. Plan for discharge tomorrow Vitals - Labs Vital Signs - I&O Vital Signs Date Time Temp Pulse Resp B/P (MAP) Pulse Ox O2 Delivery O2 Flow Rate FiO2 11/19/18 03:00 98.9 92 16 136/68 (90) Room Air 11/19/18 01:30 85 16 132/72 (92) Room Air 11/19/18 00:15 99.0 93 16 129/62 (84) Room Air 11/19/18 00:00 88 16 136/62 (86) Room Air 11/18/18 23:45 80 16 128/71 (90) Room Air 11/18/18 23:30 85 16 127/53 (77) Room Air 11/18/18 23:15 86 18 121/57 (78) Room Air 11/18/18 23:00 94 18 133/62 (85) Room Air 11/18/18 22:45 95 18 131/82 (98) Room Air 11/18/18 22:15 78 18 134/76 (95) 100 Room Air 11/18/18 22:00 83 18 137/75 (95) 100 Non Rebreather 10.00 11/18/18 21:45 83 18 128/73 (91) 100 Non Rebreather 10.00 11/18/18 21:30 78 18 135/74 (94) 100 Non Rebreather 10.00 11/18/18 21:15 72 18 129/77 (94) 100 Non Rebreather 10.00 11/18/18 21:00 81 18 117/70 (86) 100 Non Rebreather 10.00 11/18/18 20:50 99.6 Non Rebreather 10.00 11/18/18 20:45 81 18 121/78 (92) 100 Room Air 11/18/18 20:30 72 18 122/71 (88) 100 Room Air 11/18/18 20:15 66 18 111/76 (88) 100 Room Air 11/18/18 20:00 88 18 111/66 (81) 98 Room Air 11/18/18 19:45 78 18 121/66 (84) 100 Room Air 11/18/18 19:30 80 18 111/65 (80) 98 Room Air 11/18/18 19:15 87 18 111/61 (78) 100 Room Air 11/18/18 19:00 99.2 90 18 125/88 (100) 100 Room Air 11/18/18 18:45 79 18 100 Room Air 11/18/18 18:30 83 18 124/78 (93) 99 Room Air 11/18/18 18:15 97 18 114/68 (83) 100 Room Air 11/18/18 18:00 85 18 100 Room Air 11/18/18 17:45 78 18 114/55 (74) 100 Room Air 11/18/18 17:30 85 18 117/61 (79) 100 Room Air 11/18/18 17:15 98.4 80 18 98 Room Air 11/18/18 17:00 89 18 110/74 (86) 100 Room Air 11/18/18 16:45 84 18 118/65 (82) 100 Room Air 11/18/18 16:30 88 18 109/60 (76) 100 Room Air 11/18/18 16:15 68 18 113/68 (83) 100 Room Air 11/18/18 16:00 92 18 98/56 (70) 100 Room Air 11/18/18 15:44 84 18 110/63 (79) 100 Room Air 11/18/18 15:41 78 18 110/62 (78) 100 Room Air 11/18/18 15:38 83 18 122/67 (85) Room Air 11/18/18 15:35 84 18 117/68 (84) 100 Room Air 11/18/18 15:32 96 18 111/62 (78) Room Air 11/18/18 15:29 80 18 118/65 (82) 100 Room Air 11/18/18 15:25 80 18 122/67 (85) 100 Room Air 11/18/18 15:23 85 18 118/67 (84) Room Air 11/18/18 15:20 87 18 127/68 (87) 100 Room Air 11/18/18 15:17 67 18 117/62 (80) Room Air 11/18/18 15:13 71 18 123/70 (87) 100 Room Air 11/18/18 15:11 76 18 130/79 (96) Room Air 11/18/18 15:08 73 18 131/73 (92) 100 Room Air 11/18/18 15:00 97.9 11/18/18 11:49 91 18 129/73 (91) Room Air I & O 11/19/18 07:00 Intake Total 2500 ml Balance 2500 ml Labs Laboratory Tests 11/18/18 12:30: White Blood Count 12.1H, Red Blood Count 4.64, Hemoglobin 12.5, Hematocrit 38, Mean Corpuscular Volume 82, Mean Corpuscular Hemoglobin 27, Mean Corpuscular Hemoglobin Concent 33, Red Cell Distribution Width 15.3H, Platelet Count 219, Mean Platelet Volume 11.2H, Neutrophils (%) (Auto) 83H, Lymphocytes (%) (Auto) 11L, Monocytes (%) (Auto) 5, Eosinophils (%) (Auto) 1, Basophils (%) (Auto) 0, Neutrophils # (Auto) 10.0H, Lymphocytes # (Auto) 1.4, Monocytes # (Auto) 0.6, Eosinophils # (Auto) 0.1, Basophils # (Auto) 0.0 11/19/18 06:06: White Blood Count 14.9H, Red Blood Count 3.90L, Hemoglobin 10.8L, Hematocrit 32L , Mean Corpuscular Volume 82, Mean Corpuscular Hemoglobin 28, Mean Corpuscular Hemoglobin Concent 34, Red Cell Distribution Width 15.2H, Platelet Count 174, Mean Platelet Volume 11.4H, Neutrophils (%) (Auto) 82H, Lymphocytes (%) (Auto) 10L, Monocytes (%) (Auto) 8, Eosinophils (%) (Auto) 0, Basophils (%) (Auto) 0, Neutrophils # (Auto) 12.2H, Lymphocytes # (Auto) 1.5, Monocytes # (Auto) 1.2H, Eosinophils # (Auto) 0.0, Basophils # (Auto) 0.0 DAO GUTIERREZ DO Nov 19, 2018 9:42 am
[2018-11-19] MEDS: PRENATAL VITAMIN 1 EA TAB PO SCH (09:45)
[2018-11-19] MEDS: FERROUS SULF 325 MG (IRON) TAB PO SCH (09:45)
[2018-11-19] MEDS: DOCUSATE SODIUM 100 MG (COLACE) CAP PO SCH ×2 (09:45→22:13)
--- NOTE | 2018-11-19 12:15 | NUR ---
Pt c/o L hip pain c/ ambulation. States it has been an issue throughout . Lortab given. Will continue to monitor.
--- NOTE | 2018-11-19 13:08 | Anesthesia-Regional Post-Op ---
Regional Patient Condition Mental Status: Alert, Oriented x3 Circulation: Same as Pre-Op Headache: Absent Sensation: Full Recovery Motor Block: Absent Post Op Complications Complications None Follow Up Care/Instructions Patient Instructions None needed. Anesthesia/Patient Condition Patient is doing well, no complaints, stable vital signs, no apparent adverse anesthesia problems. No complications reported per nursing. MICHAELA TALBOT CRNA Nov 19, 2018 13:08
[2018-11-20 04:12] VITALS: BP 92/52
[2018-11-20] MEDS: IBUPROFEN 600 MG (MOTRIN) TAB PO SCH ×2 (04:12→14:58)
[2018-11-20 08:00] VITALS: BP 113/62
[2018-11-20] MEDS: FERROUS SULF 325 MG (IRON) TAB PO SCH (09:04)
[2018-11-20] MEDS: DOCUSATE SODIUM 100 MG (COLACE) CAP PO SCH (09:04)
[2018-11-20] MEDS: PRENATAL VITAMIN 1 EA TAB PO SCH (09:04)
--- NOTE | 2018-11-20 10:06 | Postpartum Progress Note ---
Note Note Day # 2 Subjective: Patient is without complaints. Ambulating, voiding. Tolerating a regular diet without nausea or vomiting. Normal lochia. Pain is well controlled with oral pain medications. Objective: Physical Exam: General - Alert and oriented, no apparent distress Abdomen - Soft, appropriately tender to palpation, non-distended, fundus firm at umbilicus Extremities - no edema, negative Romelia's bilaterally Assessment: PPD 2 NVD Acute blood loss anemia Plan: Routine care. Encourage breast feeding. Encourage ambulation. Ferrous sulfate supplementation. Plan for discharge today Vitals - Labs Vital Signs - I&O Vital Signs Date Time Temp Pulse Resp B/P (MAP) Pulse Ox O2 Delivery O2 Flow Rate FiO2 11/20/18 04:12 97.8 50 18 92/52 (65) 96 Room Air 11/19/18 22:13 98.1 78 18 119/56 (77) 99 Room Air 11/19/18 16:02 98.5 88 18 122/57 (78) Room Air 11/19/18 12:10 97.3 72 18 121/66 (84) Room Air DAO GUTIERREZ DO Nov 20, 2018 10:06 am
[2018-11-20 14:00] VITALS: BP 117/59
[2018-11-20 17:30] VITALS: BP 117/59
== END 2018-11-20 17:30 | disposition home or self-care (01) | DRG 806 ==
LOC: LDRP 11:45 → WSo 11:45 → LDRP 12:20
PROVIDERS: ADMIT Obstetrics & Gynecology; ATTEND Obstetrics & Gynecology
PROC: 10E0XZZ Delivery of Products of Conception, External Approach (ICD-10-PCS; principal; 2018-11-18)
PROC: 0HQ9XZZ Repair Perineum Skin, External Approach (ICD-10-PCS; 2018-11-18)
DX: O70.0 First degree perineal laceration during delivery (principal); O90.81 Anemia of the puerperium; D62 Acute posthemorrhagic anemia; Z37.0 Single live birth; Z3A.40 40 weeks gestation of pregnancy
CPT/HCPCS: 36415; 85025; 86850; 86900; 86901; 99212